=== PATIENT | female | born 1990 | race Two or more races ===

== ENCOUNTER 2018-12-28 17:24 | Inpatient (IN) | payer SELFPAY ==
[~2018-12-28] VITALS: Ht 160 cm; Wt 90.7 kg
[2018-12-28] MEDS ORDERED: IV NORMAL SALINE 1000ML BAG 1,000 ML IV SCH ×2 (17:33→20:46)
--- NOTE | 2018-12-28 17:43 | PHYS DOC ---
Past Medical History Past Medical History: No Pertinent History (AMANDO PORTER APRN) Adult General HPI HPI Patient is a 28 year old female who presents with diffuse pelvic pain/cramping, nausea. Patient reports in November she was had a home test, +. She was on control, unknown LMP OB in [facility] was tracking her Quant HCG. It had appeared she miscarried. She states she developed cramping and nausea and again saw her OB, she was told her Quant elevated and she was sent to [facility] due to not having insurance. She was seen at [facility] 12/23, labs and US done. Quant 600 and was told possible ectopic. She is not sure on what side, she is guessing the left. [facility] gave her the option of exploratory surgery or methotrexate, she declined both, she is still breast feeding a 20 month old at home. She has been resting at home. Tonight increased pelvic pain. Diffuse No urinary symptoms. Denies vaginal bleeding or discharge She is resting in no distress, arrived via EMS is coming AB1? (AMANDO PORTER APRN) Review of Systems Review of Systems Constitutional: Denies fever or chills [] Eyes: Denies change in visual acuity, redness, or eye pain [] HENT: Denies nasal congestion or sore throat [] Respiratory: Denies cough or shortness of breath [] Cardiovascular: No additional information not addressed in HPI [] GI: Denies vomiting, bloody stools or diarrhea []c/o diffuse pelvic pain, nausea : Denies dysuria or hematuria [] Musculoskeletal: Denies back pain or joint pain [] Integument: Denies rash or skin lesions [] Neurologic: Denies headache, focal weakness or sensory changes [] Endocrine: Denies polyuria or polydipsia [] All other systems were reviewed and found to be within normal limits, except as documented in this note. (AMANDO PORTER APRN) Current Medications Current Medications Current Medications Medications (Trade) Dose Ordered Sig/Jose Start Time Stop Time Status Last Admin Dose Admin Morphine Sulfate (Morphine Sulfate) 2 mg 1X ONCE 12/28/18 19:45 12/28/18 19:46 DC 12/28/18 20:58 2 MG Ondansetron HCl (Zofran) 4 mg 1X ONCE 12/28/18 17:45 12/28/18 17:46 DC 12/28/18 17:59 4 MG Sodium Chloride 1,000 ml @ 1,000 mls/hr 1X ONCE 12/28/18 20:30 12/28/18 21:29 DC 12/28/18 20:53 1,000 MLS/HR (BOBBI FRANCO MD) Allergies Allergies Allergies Coded Allergies Type Severity Reaction Last Updated Verified No Known Drug Allergies 12/28/18 No (BOBBI FRANCO MD) Physical Exam Physical Exam Constitutional: Well developed, well nourished, no acute distress, non-toxic appearance. [] HENT: Normocephalic, atraumatic, bilateral external ears normal, oropharynx moist, no oral exudates, nose normal. [] Eyes: PERRLA, EOMI, conjunctiva normal, no discharge. [] Neck: Normal range of motion, no tenderness, supple, no stridor. [] Cardiovascular:Heart rate regular rhythm, no murmur [] Lungs & Thorax: Bilateral breath sounds clear to auscultation [] Abdomen: Bowel sounds normal, soft, no masses, no pulsatile masses. [] C/ diffuse TTP of the lower abdomen, no guarding or rebound. Soft : exam deferred, denies vaginal bleeding or discharge Skin: Warm, dry, no erythema, no rash. [] Back: No tenderness, no CVA tenderness. [] Extremities: No tenderness, no cyanosis, no clubbing, ROM intact, no edema. [] Neurologic: Alert and oriented X 3, normal motor function, normal sensory function, no focal deficits noted. [] Psychologic: Affect normal, judgement normal, mood normal. [] (AMANDO PORTER APRN) Current Patient Data Vital Signs Vital Signs Date Time Temp Pulse Resp B/P (MAP) Pulse Ox O2 Delivery O2 Flow Rate FiO2 12/28/18 20:27 94 16 101/55 (70) 97 Room Air 12/28/18 17:24 98.9 98.9 (BOBBI FRANCO MD) Lab Values Laboratory Tests Test 12/28/18 17:35 12/28/18 19:20 12/28/18 19:32 White Blood Count 10.2 x10^3/uL (4.0-11.0) Red Blood Count 4.51 x10^6/uL (3.50-5.40) Hemoglobin 12.7 g/dL (12.0-15.5) Hematocrit 37.9 % (36.0-47.0) Mean Corpuscular Volume 84 fL (79-100) Mean Corpuscular Hemoglobin 28 pg (25-35) Mean Corpuscular Hemoglobin Concent 34 g/dL (31-37) Red Cell Distribution Width 13.6 % (11.5-14.5) Platelet Count 271 x10^3/uL (140-400) Neutrophils (%) (Auto) 56 % (31-73) Lymphocytes (%) (Auto) 32 % (24-48) Monocytes (%) (Auto) 6 % (0-9) Eosinophils (%) (Auto) 6 % (0-3) H Basophils (%) (Auto) 1 % (0-3) Neutrophils # (Auto) 5.7 x10^3/uL (1.8-7.7) Lymphocytes # (Auto) 3.3 x10^3/uL (1.0-4.8) Monocytes # (Auto) 0.6 x10^3/uL (0.0-1.1) Eosinophils # (Auto) 0.6 x10^3/uL (0.0-0.7) Basophils # (Auto) 0.1 x10^3/uL (0.0-0.2) Maternal Serum HCG Beta Subunit 532 mIU/mL (0-5) H Sodium Level 138 mmol/L (136-145) Potassium Level 3.8 mmol/L (3.5-5.1) Chloride Level 104 mmol/L (98-107) Carbon Dioxide Level 20 mmol/L (21-32) L Anion Gap 14 (6-14) Blood Urea Nitrogen 20 mg/dL (7-20) Creatinine 0.8 mg/dL (0.6-1.0) Estimated GFR (Cockcroft-Gault) 86.7 Glucose Level 107 mg/dL (70-99) H Calcium Level 9.5 mg/dL (8.5-10.1) Urine Collection Type Unknown Urine Color Yellow Urine Clarity Clear Urine pH 5.0 Urine Specific [place] 1.020 Urine Protein Negative mg/dL (NEG-TRACE) Urine Glucose (UA) Negative mg/dL (NEG) Urine Ketones (Stick) 40 mg/dL (NEG) Urine Blood Negative (NEG) Urine Nitrite Negative (NEG) Urine Bilirubin Negative (NEG) Urine Urobilinogen Dipstick 0.2 mg/dL (0.2 mg/dL) Urine Leukocyte Esterase Negative (NEG) Urine RBC 0 /HPF (0-2) Urine WBC Occ /HPF (0-4) Urine Squamous Epithelial Cells Mod /LPF Urine Bacteria Few /HPF (0-FEW) Urine Mucus Mod /LPF POC Urine HCG, Qualitative Hcg positive (Negative) Laboratory Tests 12/28/18 17:35 Laboratory Tests 12/28/18 17:35 (BOBBI FRANCO MD) Lab Values Laboratory Tests Test 12/28/18 17:35 12/28/18 19:20 12/28/18 19:32 White Blood Count 10.2 x10^3/uL (4.0-11.0) Red Blood Count 4.51 x10^6/uL (3.50-5.40) Hemoglobin 12.7 g/dL (12.0-15.5) Hematocrit 37.9 % (36.0-47.0) Mean Corpuscular Volume 84 fL (79-100) Mean Corpuscular Hemoglobin 28 pg (25-35) Mean Corpuscular Hemoglobin Concent 34 g/dL (31-37) Red Cell Distribution Width 13.6 % (11.5-14.5) Platelet Count 271 x10^3/uL (140-400) Neutrophils (%) (Auto) 56 % (31-73) Lymphocytes (%) (Auto) 32 % (24-48) Monocytes (%) (Auto) 6 % (0-9) Eosinophils (%) (Auto) 6 % (0-3) H Basophils (%) (Auto) 1 % (0-3) Neutrophils # (Auto) 5.7 x10^3/uL (1.8-7.7) Lymphocytes # (Auto) 3.3 x10^3/uL (1.0-4.8) Monocytes # (Auto) 0.6 x10^3/uL (0.0-1.1) Eosinophils # (Auto) 0.6 x10^3/uL (0.0-0.7) Basophils # (Auto) 0.1 x10^3/uL (0.0-0.2) Maternal Serum HCG Beta Subunit 532 mIU/mL (0-5) H Sodium Level 138 mmol/L (136-145) Potassium Level 3.8 mmol/L (3.5-5.1) Chloride Level 104 mmol/L (98-107) Carbon Dioxide Level 20 mmol/L (21-32) L Anion Gap 14 (6-14) Blood Urea Nitrogen 20 mg/dL (7-20) Creatinine 0.8 mg/dL (0.6-1.0) Estimated GFR (Cockcroft-Gault) 86.7 Glucose Level 107 mg/dL (70-99) H Calcium Level 9.5 mg/dL (8.5-10.1) Urine Collection Type Unknown Urine Color Yellow Urine Clarity Clear Urine pH 5.0 Urine Specific [place] 1.020 Urine Protein Negative mg/dL (NEG-TRACE) Urine Glucose (UA) Negative mg/dL (NEG) Urine Ketones (Stick) 40 mg/dL (NEG) Urine Blood Negative (NEG) Urine Nitrite Negative (NEG) Urine Bilirubin Negative (NEG) Urine Urobilinogen Dipstick 0.2 mg/dL (0.2 mg/dL) Urine Leukocyte Esterase Negative (NEG) Urine RBC 0 /HPF (0-2) Urine WBC Occ /HPF (0-4) Urine Squamous Epithelial Cells Mod /LPF Urine Bacteria Few /HPF (0-FEW) Urine Mucus Mod /LPF POC Urine HCG, Qualitative Hcg positive (Negative) Laboratory Tests 12/28/18 17:35 Laboratory Tests 12/28/18 17:35 (AMANDO PORTER APRN) EKG EKG [] (AMANDO PORTER APRN) Radiology/Procedures Radiology/Procedures []IMAGING REPORT Signed PATIENT: LIZ KNOWLES ACCOUNT: [id number] : 1990 LOCATION: ER AGE: 28 SEX: F EXAM STATUS: REG ER ORD. PHYSICIAN: AMANDO PORTER APRN REASON: reports possible ectopic, pelvic pain/ SR NOTIFIED PROCEDURE: OB <14 WKS W/TV Indication:Possible ectopic . Pelvic pain. TECHNIQUE: Grayscale, color Doppler and spectral waveform images of the pelvis obtained. COMPARISON: None FINDINGS: Anteverted uterus measuring 9.7 x 4.6 x 4.6 cm. Endometrial stripe measures 9 mm in thickness and is within normal limits. No intrauterine seen. Complex free fluid is seen in the cul-de-sac. Left ovary measures 3.3 x 4.3 x 2.7 cm with anechoic lesion measuring 2.1 x 2.5 x 2.2 cm. Right ovary measures 5.1 x 2.8 x 4.0 cm with anechoic lesion measuring 2.6 x 2.2 x 2.0 cm. Both ovaries show evidence of blood flow. There is an isoechoic masslike lesion in the right adnexa measuring 2.1 x 1.8 x 1.7 cm without vascularity. Cervical length measures 3.5 cm. IMPRESSION: 1. No intrauterine seen. Ectopic not ruled out. Correlate with beta-hCG. 2. Complex free pelvic fluid in the cul-de-sac. Ruptured ectopic not ruled out. 3. Nonvascular hypoechoic masslike lesion in the right adnexa may be a blood clot or posterior fibroid. Critical findings were identified on 12/28/2018 8:06 PM, read back and verified with Dr. Porter on 12/28/2018 8:[address] Ac Celis DO. Electronically signed by: Ac Celis DO (12/28/2018 8:16 PM) [facility] DICTATED and SIGNED BY: AC CELIS DO DATE: 12/28/182015 (AMANDO PORTER APRN) Impressions: Pelvic pain, ruptured ectopic ? (AMANDO PORTER APRN) Course & Med Decision Making Course & Med Decision Making Pertinent Labs and Imaging studies reviewed. (See chart for details) []Patient with a convoluted history of needing her Quant done, she is not sure if she miscarried in November. OB has been watching her Quant. OB was concerned she had ectopic but due to no insurance would not treat, referred to [facility]. She states [facility] did not believe her story. She had labs and US and was DC and told to monitor symptoms Pain worse today Will obtain labs and US IV fluids and pain control Last ate at 330pm today Quant today is 532, RH + US: no IUP, complex fluid in pelvic, ? ruptured ectopic Discussed case with Dr Brito for OB BP hypotensive 90 pulse 80-90 Pain not [address] controlled DR Brito recommends admission and surgery in the morning, patient is in agreement. NPO after midnight, BP improved with additional IV fluids Stable for admission (AMANDO PORTER APRN) Dragon Disclaimer Dragon Disclaimer This electronic medical record was generated, in whole or in part, using a voice recognition dictation system. (AMANDO PORTER APRN) Departure Departure Disposition: ADMITTED INPATIENT Condition: STABLE Attending Signature I have participated in the care of this patient and I have reviewed and agree with all pertinent clinical information above including history, exam, and recommendations. (BOBBI FRANCO MD) AMANDO PORTER APRN Dec 28, 2018 17:43 BOBBI FRANCO MD Dec 29, 2018 03:38
[2018-12-28 17:44] LABS: BASO # 0.1 x10^3/uL (0.0-0.2); BASO % 1 % (0-3); EOS # 0.6 x10^3/uL (0.0-0.7); EOS % 6 % (0-3); HEMATOCRIT 37.9 % (36.0-47.0); HEMOGLOBIN 12.7 g/dL (12.0-15.5); LYMPH # 3.3 x10^3/uL (1.0-4.8); LYMPH % 32 % (24-48); MEAN CORPUSCULAR HEMOGLOBIN 28 pg (25-35); MEAN CORPUSCULAR HGB CONC 34 g/dL (31-37); MEAN CORPUSCULAR VOLUME 84 fL (79-100); MONO # 0.6 x10^3/uL (0.0-1.1); MONO % 6 % (0-9); NEUT # 5.7 x10^3/uL (1.8-7.7); NEUT % 56 % (31-73); PLATELET COUNT 271 x10^3/uL (140-400); RED BLOOD COUNT 4.51 x10^6/uL (3.50-5.40); RED CELL DISTRIBUTION WIDTH 13.6 % (11.5-14.5); WHITE BLOOD COUNT 10.2 x10^3/uL (4.0-11.0)
[2018-12-28] MEDS ORDERED: ONDANSETRON PF 4 MG/2 ML VIAL. IV ONE (17:45)
[2018-12-28] MEDS: MORPHINE SULFATE 2 MG/ML VIAL. IV/SQ PRN ×2 (17:58→19:52)
[2018-12-28 19:41] LABS: BILIRUBIN,URINE NEGATIVE (NEG); CLARITY,URINE CLEAR; COLOR,URINE YELLOW; NITRITE,URINE NEGATIVE (NEG); PROTEIN,URINE NEGATIVE (NEG-TRACE); UROBILINOGEN,URINE 0.2 mg/dL (0.2 mg/dL)
[2018-12-28 19:43] LABS: CALCIUM 9.5 mg/dL (8.5-10.1); CREATININE 0.8 mg/dL (0.6-1.0); GFR 86.7; POTASSIUM 3.8 mmol/L (3.5-5.1)
[2018-12-28] MEDS ORDERED: MORPHINE SULFATE 2 MG/ML VIAL. IV ONE (19:45)
[2018-12-28 19:50] LABS: BACTERIA,URINE FEW /HPF (0-FEW); RBC,URINE 0 /HPF (0-2); SQUAMOUS EPITHELIAL CELL,UR MOD /LPF; WBC,URINE OCC /HPF (0-4)
--- NOTE | 2018-12-28 20:19 | RAD ---
Indication:Possible ectopic . Pelvic pain. TECHNIQUE: Grayscale, color Doppler and spectral waveform images of the pelvis obtained. COMPARISON: None FINDINGS: Anteverted uterus measuring 9.7 x 4.6 x 4.6 cm. Endometrial stripe measures 9 mm in thickness and is within normal limits. No intrauterine seen. Complex free fluid is seen in the cul-de-sac. Left ovary measures 3.3 x 4.3 x 2.7 cm with anechoic lesion measuring 2.1 x 2.5 x 2.2 cm. Right ovary measures 5.1 x 2.8 x 4.0 cm with anechoic lesion measuring 2.6 x 2.2 x 2.0 cm. Both ovaries show evidence of blood flow. There is an isoechoic masslike lesion in the right adnexa measuring 2.1 x 1.8 x 1.7 cm without vascularity. Cervical length measures 3.5 cm. IMPRESSION: 1. No intrauterine seen. Ectopic not ruled out. Correlate with beta-hCG. 2. Complex free pelvic fluid in the cul-de-sac. Ruptured ectopic not ruled out. 3. Nonvascular hypoechoic masslike lesion in the right adnexa may be a blood clot or posterior fibroid. Critical findings were identified on 12/28/2018 8:06 PM, read back and verified with Dr. Porter on 12/28/2018 8:[address] Ac Celis DO. Electronically signed by: Ac Celis DO (12/28/2018 8:16 PM) [facility]
[2018-12-28] MEDS ORDERED: IV NORMAL SALINE 1000ML BAG 1,000 ML IV ONE (20:30)
[2018-12-28] MEDS ORDERED: ONDANSETRON PF 4 MG/2 ML VIAL. IV PRN (21:00)
[2018-12-28 22:10] VITALS: BP 102/59
[2018-12-28] MEDS ORDERED: ACETAMINOPHEN 500 MG TABLET PO PRN (22:30)
[2018-12-28] MEDS: MORPHINE SULFATE 2 MG/ML VIAL. IV PRN (22:53)
[2018-12-29] VITALS (12 sets, daily range): BP systolic 100–118; BP diastolic 49–72
[2018-12-29] MEDS: MORPHINE SULFATE 2 MG/ML VIAL. IV PRN ×2 (00:44→02:45)
[2018-12-29] MEDS: MORPHINE SULFATE 2 MG/ML VIAL. IV/SQ PRN ×2 (05:09→07:00)
[2018-12-29] MEDS ORDERED: IV RINGERS,LACTATED 1000ML 1,000 ML IV SCH (07:23)
[2018-12-29] MEDS ORDERED: fentaNYL PF VIAL 100 MCG/2 ML VIAL IV PRN (07:30)
[2018-12-29] MEDS ORDERED: PROCHLORPERAZINE 10 MG/2 ML VIAL. IV PRN (07:30)
[2018-12-29] MEDS ORDERED: BUPIVACAINE MPF 0.5% 30 ML VIAL. ONE (07:30)
[2018-12-29] MEDS ORDERED: MORPHINE SULFATE 2 MG/ML VIAL. IV PRN (07:30)
[2018-12-29] MEDS ORDERED: ONDANSETRON PF 4 MG/2 ML VIAL. IV PRN (07:30)
[2018-12-29] MEDS ORDERED: ONDANSETRON PF 4 MG/2 ML VIAL. ONE (07:44)
[2018-12-29] MEDS ORDERED: fentaNYL PF VIAL 100 MCG/2 ML VIAL ONE ×2 (07:44→09:54)
[2018-12-29] MEDS ORDERED: DEXAMETHASONE SOD PHOS 4 MG/ML VIAL ONE (07:44)
[2018-12-29] MEDS ORDERED: PROPOFOL 20 ML IV ONE (07:44)
[2018-12-29] MEDS ORDERED: LIDOCAINE 2% PF 5 ML VIAL. ONE (07:44)
[2018-12-29] MEDS ORDERED: ROCURONIUM 50 MG/5 ML VIAL. ONE (07:45)
[2018-12-29] MEDS ORDERED: KETOROLAC 30 MG/ML VIAL. ONE (08:58)
[2018-12-29] MEDS ORDERED: SEVOFLURANE 61 TO 120 MINUTES. IH ONE (08:58)
[2018-12-29] MEDS ORDERED: GLYCOPYRROLATE 1 MG/5 ML VIAL. ONE (09:14)
[2018-12-29] MEDS ORDERED: NEOSTIGMINE METHYLSULFATE 5 MG/5 ML SYRINGE. ONE (09:14)
[2018-12-29] MEDS: fentaNYL PF VIAL 100 MCG/2 ML VIAL IV PRN ×3 (10:00→10:27)
[2018-12-29] MEDS ORDERED: HYDROmorphone 2 MG/ML VIAL ONE (10:33)
--- NOTE | 2018-12-29 10:34 | OP ---
DATE OF SURGERY: 12/29/2018 PREOPERATIVE DIAGNOSES: Positive test, pelvic pain. POSTOPERATIVE DIAGNOSES: 1. Positive test, pelvic pain. 2. Hemoperitoneum. 3. Right ectopic . SURGEON: Dave Brito MD [employer]: None. ANESTHESIA: General. ESTIMATED BLOOD LOSS: 10 mL. FLUIDS: Crystalloids. FINDINGS: Right mid ampullary ectopic , somewhat blunt left tubal fimbriae, approximately 100 mL of hemoperitoneum. No other abnormalities appreciated. SPECIMENS: Right salpinx with products of conception. COMPLICATIONS: None. CONDITION: Stable. DESCRIPTION OF PROCEDURE: Risks, benefits, indications, alternatives discussed in detail with the patient. The patient was brought to OR theater, placed in the dorsal lithotomy position in Gunnar stirrups. After adequate general anesthesia, the patient prepped and draped in the usual sterile manner. A sponge stick was placed in the vaginal vault. Attention was then turned to the abdominal wall. A small transverse infraumbilical incision was made sharply through this, a Veress needle was placed. Pneumoperitoneum was created. A 5-mm disposable trocar was placed under direct supervision through the Visiport. Two lateral 5-mm trocars were placed, the above findings were noted. Left lateral 5-mm trocar was replaced with 12-mm trocar sleeve. Through this, a laparoscopic stapling device was placed. The tube was transected with products of conception from its attachments. EndoCatch bag was used to bring the tube out through this left lateral port without any difficulties. The hemoperitoneum was evacuated with suction irrigation. Photos were taken. Good hemostasis was assured and the procedure was terminated. All ports were removed after the pneumoperitoneum was allowed to dissipate. The right lateral incision was reapproximated with Dermabond. The other 2 incisions were reapproximated with subcuticular 4-0 Monocryl. Sponge stick was removed. Sponge, needle and instrument counts were correct x 2 per nursing staff. The patient went to postop anesthesia recovery in stable condition. DAVE BRITO MD DR: [email or web address]/semaj JOB#: [id number] / [id number]
[2018-12-29] MEDS: HYDROmorphone 2 MG/ML VIAL IV PRN ×2 (10:37→10:55)
[2018-12-29] MEDS ORDERED: oxyCODONE/APAP 5/325 1 TAB TABLET PO PRN (12:00)
[2018-12-29] MEDS: oxyCODONE/APAP 5/325 1 TAB TABLET PO PRN ×4 (12:38→21:04)
[2018-12-29] MEDS: DOCUSATE SODIUM 100 MG CAPSULE. PO PRN (16:52)
[2018-12-29] MEDS: SIMETHICONE 80 MG TAB.CHEW PO PRN ×2 (16:53→22:46)
[2018-12-29] MEDS: IBUPROFEN 400 MG TABLET. PO PRN (16:53)
[2018-12-30 01:15] VITALS: BP 100/47
[2018-12-30] MEDS: oxyCODONE/APAP 5/325 1 TAB TABLET PO PRN ×3 (01:16→12:36)
[2018-12-30] MEDS: IBUPROFEN 400 MG TABLET. PO PRN ×2 (01:17→08:23)
[2018-12-30 08:20] VITALS: BP 98/44
[2018-12-30] MEDS: DOCUSATE SODIUM 100 MG CAPSULE. PO PRN (08:23)
--- NOTE | 2018-12-30 13:50 | NUR ---
Discharge and follow up instructions given to patient along with a RX for percocet and Motrin. Pt ambulated out of the unit with staff and her and all belongings returned to patient. Pt denies complaints or questions at time of discharge.
[2018-12-30 13:53] VITALS: BP 98/49
--- NOTE | 2018-12-31 18:06 | PATHOLOGY ---
[facility] Accession Number: [id number] . 01 Material submitted: . fallopian tube - RIGHT FALLOPIAN TUBE WITH PRODUCTS OF CONCEPTION. Modifiers: right . 01 Clinical history: . Pelvic pain/ruptured ectopic . 02 Diagnosis: Fallopian tube, laparoscopic right salpingectomy: - Ectopic tubal . - Hematosalpinx. (JPM:mayra; 12/31/2018) MBR 12/31/2018 1430 Local . 02 Electronically signed: . Jalil Muñoz MD, Pathologist NPI- [id number] . 01 Gross description: . The specimen is received in formalin, labeled "Shocks, Renate, right fallopian tube with products of conception" and consists of a dilated purple-pimentel fimbriated fallopian tube measuring 5.5 cm in length and ranging from 0.6-1.4 cm in diameter. There is a line of fabrice from the proximal margin to the distal fimbriated aspect. The staple line is removed. There is focal disruption of the serosa near the fimbriated aspect measuring 0.6 x 0.6 cm but no protruding blood clot. Sectioning reveals the lumen contains blood clot and possible govea-brown tissue traffic workforce representative sections are submitted in A1-A4. (SDY; 12/30/2018) SYU/SYU 12/30/2018 1641 Local . 02 Pathologist provided ICD-10: O00.101, N83.6 . 02 CPT . 398618 Specimen Comment: A courtesy copy of this report has been sent to Specimen Comment: [phone], . Specimen Comment: Report sent to DR ROCA / DR HERNANDEZ Performed at: [address], [place], [place] [id number] MD Harsha Laughlin MD Phone: [phone] Performed at: [address] [id number] MD Jalil Muñoz MD Phone: [phone]
== END 2018-12-30 13:50 | disposition home or self-care (01) | DRG 817 ==
LOC: ER 17:24 → 3 NORTH 20:42
PROVIDERS: ADMIT Specialist; ATTEND Specialist
PROC: 10T24ZZ Resection of Products of Conception, Ectopic, Percutaneous Endoscopic Approach (ICD-10-PCS; 2018-12-29)
PROC: 0UB54ZZ Excision of Right Fallopian Tube, Percutaneous Endoscopic Approach (ICD-10-PCS; principal; 2018-12-29 08:00)
DX: O00.90 Unspecified ectopic pregnancy without intrauterine pregnancy (principal); K66.1 Hemoperitoneum; Z3A.14 14 weeks gestation of pregnancy
CPT/HCPCS: 36415; 76801; 76817; 80048; 81001; 81025; 84702; 85025; 86900; 86901; 88305; 96361; 96374; 96375; A7015; J1100; J1170; J1885; J2001; J2270; J2405; J2704; J2710; J3010; J3490; J7030; J7120; 99285-25; G0378